=== PATIENT | male | born 1945 | race Caucasian/White ===

== ENCOUNTER 2021-04-06 14:11 | Emergency (ER) | payer OTHER ==
[~2021-04-06] VITALS: Ht 162.6 cm; Wt 59.4 kg
[2021-04-06] MEDS ORDERED: BUSPIRONE HCL15 MG PO (14:25)
[2021-04-06] MEDS ORDERED: ESCITALOPRAM OX20 MG PO (14:25)
[2021-04-06] MEDS ORDERED: LAMICTAL100 MG PO (14:26)
[2021-04-06] MEDS ORDERED: LISINOPRIL10 MG PO (14:26)
[2021-04-06] MEDS ORDERED: OMEPRAZOLE40 MG PO (14:26)
[2021-04-06] MEDS ORDERED: HYDRODIURIL12.5 MG PO (14:26)
[2021-04-06] MEDS ORDERED: TRAZODONE HCL100 MG PO (14:26)
[2021-04-06] MEDS ORDERED: ATORVASTATIN CA40 MG PO (14:27)
[2021-04-06] MEDS ORDERED: ZOLPIDEM TARTRA10 MG PO (14:27)
== END 2021-04-06 16:21 | disposition home or self-care (01) ==
LOC: ER 14:11
DX: R60.0 Localized edema (principal); L30.8 Other specified dermatitis